=== PATIENT | male | born 1970 | race Asian ===

== ENCOUNTER → 2017-11-08 07:43 | Outpatient (CLI) | payer MEDICARE, MEDICAID, SELFPAY ==
[2017-11-08 09:16] LABS: VALPROIC ACID 76.1 ug/mL (50-100)
== END ==
PROVIDERS: PCP Family Medicine; Visit Provider Family Medicine
DX: G40.109 Localization-related (focal) (partial) symptomatic epilepsy and epileptic syndromes with simple partial seizures, not intractable, without status epilepticus (principal); Z51.81 Encounter for therapeutic drug level monitoring; Z79.899 Other long term (current) drug therapy
CPT/HCPCS: 36415; 80164

== ENCOUNTER 2018-05-28 09:40 | Outpatient (CLI) | payer MEDICARE, MEDICAID, SELFPAY ==
[2018-05-28 10:26] LABS: VALPROIC ACID 72.1 ug/mL (50-100)
== END 2018-05-28 10:00 ==
PROVIDERS: PCP Family Medicine; Visit Provider Family Medicine
DX: G40.109 Localization-related (focal) (partial) symptomatic epilepsy and epileptic syndromes with simple partial seizures, not intractable, without status epilepticus (principal); Z51.81 Encounter for therapeutic drug level monitoring; Z79.899 Other long term (current) drug therapy
CPT/HCPCS: 36415; 80164

== ENCOUNTER 2018-07-17 09:51 | Outpatient (CLI) | payer MEDICARE, MEDICAID, SELFPAY ==
[2018-07-17 11:16] LABS: TROPONIN-I 11.7 ug/mL (4.0-12.0)
== END 2018-07-17 10:11 ==
PROVIDERS: PCP Family Medicine; Visit Provider Family Medicine
DX: G40.109 Localization-related (focal) (partial) symptomatic epilepsy and epileptic syndromes with simple partial seizures, not intractable, without status epilepticus (principal); Z51.81 Encounter for therapeutic drug level monitoring; Z79.899 Other long term (current) drug therapy
CPT/HCPCS: 36415; 80156

== ENCOUNTER 2019-01-15 07:00 | Outpatient (CLI) | payer MEDICARE, MEDICAID, SELFPAY ==
[2019-01-15 13:10] LABS: HCT 42.1 % (40.0-50.0); HGB 14.4 g/dL (13.5-17.5); Mean Corp. HGB Concentration 34.2 g/dL (32.0-36.0); Mean Corpuscular Hemoglobin 32.7 pg (27.0-33.0); Mean Corpuscular Volume 95.5 fL (80-95); Mean Platelet Volume 10.9 fL (8.0-11.0); Platelet Count 221 x1000/uL (130-400); RBC 4.41 m/cumm (4.50-6.00); RBC Distribution Width 12.8 % (11.8-14.1); White Blood Cell Count 6.94 k/cumm (4.4-10.8)
[2019-01-15 13:18] LABS: ALT 29 U/L (16-63); AST 14 U/L (15-37); Alkaline Phosphatase 73 U/L (46-116); Anion Gap 10.9 mmol/L (3-11); BUN 12 mg/dL (7-18); Bilirubin, Total 0.3 mg/dL (0.2-1.0); CO2 24.1 mmol/L (21.0-32.0); CREATININE 0.76 mg/dL (0.70-1.30); Chloride 105 mmol/L (98-107); Glucose 108 mg/dL (70-100); Potassium 4.2 mmol/L (3.5-5.1); Sodium 140 mmol/L (136-145); Total Protein 7.2 g/dL (6.4-8.2)
[2019-01-15 13:37] LABS: VALPROIC ACID 67.5 ug/mL (50-100)
== END 2019-01-15 07:20 ==
PROVIDERS: PCP Family Medicine; Visit Provider Family Medicine
DX: F84.0 Autistic disorder (principal); G40.109 Localization-related (focal) (partial) symptomatic epilepsy and epileptic syndromes with simple partial seizures, not intractable, without status epilepticus; Z51.81 Encounter for therapeutic drug level monitoring
CPT/HCPCS: 36415; 80053; 85027; 80164

== ENCOUNTER 2019-03-19 16:03 | Outpatient (CLI) | payer MEDICARE, MEDICAID, SELFPAY ==
--- NOTE | 2019-03-19 12:25 | DI.RAD_ITS ---
EXAM: XR SHOULDER RT COMPLETE 2+V CLINICAL HISTORY: Right shoulder injury s/p fall, S49.91XA TECHNIQUE: COMPARISON: No exams were available for comparison FINDINGS: Six views were obtained. There is a fracture of the distal aspect of clavicle with mild comminution and moderate displacement. No additional fracture seen. No evidence of a glenohumeral dislocation. IMPRESSION:
== END 2019-03-19 16:23 ==
PROVIDERS: PCP Family Medicine; Visit Provider Family Medicine
DX: M25.511 Pain in right shoulder (principal); S49.91XA Unspecified injury of right shoulder and upper arm, initial encounter; S42.031A Displaced fracture of lateral end of right clavicle, initial encounter for closed fracture
CPT/HCPCS: 73030

== ENCOUNTER 2020-01-13 03:46 | Outpatient (CLI) | payer MEDICARE, MEDICAID, SELFPAY ==
[2020-01-13 11:13] LABS: HCT 41.9 % (40.0-50.0); HGB 14.3 g/dL (13.5-17.5); MCH 32.7 pg (27.0-33.0); MCHC 34.1 % (32.0-36.0); MCV 95.9 fL (80-95); MPV 10.3 fL (8.0-11.0); Platelet Count 165 10^3/uL (130-400); RBC 4.37 10^6/uL (4.36-5.78); RDW 11.9 % (11.8-14.1); RDW-SD 41.9 fL; WBC 6.32 10^3/uL (4.4-10.8)
[2020-01-13 12:15] LABS: VALPROIC ACID 47.6 ug/mL (50-100)
[2020-01-13 12:16] LABS: ALT 16 U/L (16-63); AST 10 U/L (15-37); Albumin 3.8 g/dL (3.4-5.0); Alkaline Phosphatase 57 U/L (46-116); BUN 13 mg/dL (7-18); Bilirubin, Total 0.3 mg/dL (0.2-1.0); CREATININE 0.71 mg/dL (0.70-1.30); Calcium 8.4 mg/dL (8.5-10.1); Calculated LDL 127 mg/dL (<100); Chloride 104 mmol/L (98-107); Cholesterol 221 mg/dL (<200); Glucose 85 mg/dL (74-106); HDL Cholesterol 55 mg/dL (40-60); Potassium 3.8 mmol/L (3.5-5.1); Sodium 135 mmol/L (136-145); TROPONIN-I 11.1 ug/mL (4.0-12.0); Total Protein 6.9 g/dL (6.4-8.2); Triglyceride 199 mg/dL (<150)
== END 2020-01-13 04:06 ==
PROVIDERS: PCP Nurse Practitioner; Visit Provider Nurse Practitioner
DX: G40.109 Localization-related (focal) (partial) symptomatic epilepsy and epileptic syndromes with simple partial seizures, not intractable, without status epilepticus (principal); Z51.81 Encounter for therapeutic drug level monitoring; Z79.899 Other long term (current) drug therapy; Z13.6 Encounter for screening for cardiovascular disorders
CPT/HCPCS: 36415; 80053; 80061; 85027; 80156; 80164

== ENCOUNTER 2020-12-20 03:36 | Outpatient (CLI) | payer MEDICARE, MEDICAID, SELFPAY ==
[2020-12-20 09:28] LABS: VALPROIC ACID 69.2 ug/mL
== END 2020-12-20 03:37 | disposition home or self-care (01) ==
LOC: LBO 03:36
PROVIDERS: PCP Nurse Practitioner; Visit Provider Nurse Practitioner
DX: G40.109 Localization-related (focal) (partial) symptomatic epilepsy and epileptic syndromes with simple partial seizures, not intractable, without status epilepticus (principal)
CPT/HCPCS: 36415; 80164

== ENCOUNTER 2022-01-23 03:31 | Outpatient (CLI) | payer MEDICARE, MEDICAID, SELFPAY ==
[2022-01-23 11:20] LABS: HCT 40.5 % (40.0-50.0); HGB 14.2 g/dL (13.5-17.5); MCH 32.3 pg (27.0-33.0); MCHC 35.1 % (32.0-36.0); MCV 92 fL (80-95); MPV 9.6 fL (8.0-11.0); Platelet Count 206 10^3/uL (130-400); RBC 4.39 10^6/uL (4.36-5.78); RDW 11.9 % (11.8-14.1); RDW-SD 40.5 fL; WBC 8.14 10^3/uL (4.4-10.8)
[2022-01-23 11:56] LABS: ALT 28 U/L (16-63); AST 18 U/L (15-37); Albumin 3.9 g/dL (3.4-5.0); Alkaline Phosphatase 82 U/L (46-116); Anion Gap 9.7 mmol/L (3-11); BUN 10 mg/dL (7-18); Bilirubin, Total 0.3 mg/dL (0.2-1.0); CO2 22.3 mmol/L (21.0-32.0); CREATININE 0.6 mg/dL (0.70-1.30); Calcium 8.8 mg/dL (8.5-10.1); Chloride 101 mmol/L (98-107); Estimated GFR 116.87 (mL/min/1.73m2); Glucose 102 mg/dL (74-106); Potassium 3.6 mmol/L (3.5-5.1); Sodium 133 mmol/L (136-145); Total Protein 7.3 g/dL (6.4-8.2)
[2022-01-23 11:59] LABS: TROPONIN-I 12.7 ug/mL (4.0-12.0)
== END 2022-01-23 03:32 | disposition home or self-care (01) ==
LOC: LBO 03:31
PROVIDERS: Family Medicine; PCP Nurse Practitioner Family; Visit Provider Nurse Practitioner Family
DX: G40.109 Localization-related (focal) (partial) symptomatic epilepsy and epileptic syndromes with simple partial seizures, not intractable, without status epilepticus (principal)
CPT/HCPCS: 36415; 80053; 85027; 80156; 80164; 80201

== ENCOUNTER 2022-02-21 04:00 | Outpatient (CLI) | payer MEDICARE, MEDICAID, SELFPAY ==
[2022-02-21 12:10] LABS: Lab Add On Test DONE
[2022-02-21 12:45] LABS: TROPONIN-I 9.8 ug/mL (4.0-12.0); VALPROIC ACID 64.2 ug/mL
[2022-02-21 18:31] LABS: PSA, Diagnostic 0.5 ng/mL (<=3.5)
[2022-02-24 07:41] LABS: Topiramate 1.9 mcg/mL
== END 2022-02-21 04:01 | disposition home or self-care (01) ==
LOC: LBO 04:00
PROVIDERS: Emergency Medicine; Nurse Practitioner Family; PCP Nurse Practitioner Family; Visit Provider Family Medicine
DX: G40.109 Localization-related (focal) (partial) symptomatic epilepsy and epileptic syndromes with simple partial seizures, not intractable, without status epilepticus (principal); R33.9 Retention of urine, unspecified
CPT/HCPCS: 80156; 80164; 80201; 84153

== ENCOUNTER → 2022-05-22 07:58 | Outpatient (BNVA) | payer MEDICARE, MEDICAID, SELFPAY | PROVIDERS: PCP Nurse Practitioner Family; Referring Provider Nurse Practitioner Family; Visit Provider Urology | DX: R35.0 Frequency of micturition (principal) | CPT/HCPCS: 51798; 99204 ==

== ENCOUNTER 2022-09-04 10:26 | Outpatient (CLI) | payer MEDICARE, MEDICAID, SELFPAY ==
[2022-09-04 12:36] LABS: ALT 62 U/L (16-63); AST 40 U/L (15-37); Albumin 3.8 g/dL (3.4-5.0); Alkaline Phosphatase 87 U/L (46-116); BUN 10 mg/dL (7-18); Bilirubin, Total 0.4 mg/dL (0.2-1.0); CREATININE 0.8 mg/dL (0.70-1.30); Chloride 103 mmol/L (98-107); Estimated GFR 106.48 (mL/min/1.73m2); Glucose 121 mg/dL (74-106); Potassium 3.9 mmol/L (3.5-5.1); Sodium 137 mmol/L (136-145); Total Protein 7.5 g/dL (6.4-8.2)
[2022-09-04 12:41] LABS: TROPONIN-I 11.5 ug/mL (4.0-12.0); VALPROIC ACID 68.2 ug/mL
[2022-09-04 12:53] LABS: Calcium 9.2 mg/dL (8.5-10.1)
[2022-09-05 21:31] LABS: Topiramate 3.1 mcg/mL
== END 2022-09-04 10:27 | disposition home or self-care (01) ==
LOC: LOS 10:26
PROVIDERS: PCP Nurse Practitioner Family; Referring Provider Nurse Practitioner Family; Visit Provider Nurse Practitioner Family
DX: G40.109 Localization-related (focal) (partial) symptomatic epilepsy and epileptic syndromes with simple partial seizures, not intractable, without status epilepticus (principal)
CPT/HCPCS: 36415; 80053; 80156; 80164; 80201

== ENCOUNTER → 2023-05-21 10:01 | Outpatient (BNVA) | payer MEDICARE, MEDICAID, SELFPAY | PROVIDERS: Referring Provider Nurse Practitioner Family; Visit Provider Urology | DX: R35.0 Frequency of micturition (principal); F84.0 Autistic disorder | CPT/HCPCS: 51798; 99213 ==

== ENCOUNTER 2023-08-07 13:41 | Outpatient (REF) | payer MEDICARE, MEDICAID, SELFPAY ==
[2023-08-07 14:54] LABS: HCT 41.1 % (40.0-50.0); HGB 14.5 g/dL (13.5-17.5); MCH 32.4 pg (27.0-33.0); MCHC 35.3 % (32.0-36.0); MCV 92 fL (80-95); MPV 12.1 fL (8.0-11.0); Platelet Count 167 10^3/uL (130-400); RBC 4.47 10^6/uL (4.36-5.78); RDW 12.6 % (11.8-14.1); RDW-SD 42.8 fL; WBC 7.83 10^3/uL (4.4-10.8)
[2023-08-07 15:26] LABS: ALT 34 U/L (16-63); AST 22 U/L (15-37); Albumin 3.9 g/dL (3.4-5.0); Alkaline Phosphatase 71 U/L (46-116); Anion Gap 7.2 mmol/L (3-11); BUN 7 mg/dL (7-18); Bilirubin, Total 0.4 mg/dL (0.2-1.0); CO2 24.8 mmol/L (21.0-32.0); CREATININE 0.8 mg/dL (0.70-1.30); Calcium 9.1 mg/dL (8.5-10.1); Calculated LDL 104 mg/dL (<100); Chloride 105 mmol/L (98-107); Cholesterol 198 mg/dL (<200); Estimated GFR 105.82 (mL/min/1.73m2); Glucose 103 mg/dL (74-106); HDL Cholesterol 69 mg/dL (40-60); Sodium 137 mmol/L (136-145); Total Protein 7.1 g/dL (6.4-8.2); Triglyceride 127 mg/dL (<150)
== END 2023-08-07 13:42 | disposition home or self-care (01) ==
LOC: NCHCN 13:41
PROVIDERS: Visit Provider Internal Medicine
DX: Z13.220 Encounter for screening for lipoid disorders (principal); R03.0 Elevated blood-pressure reading, without diagnosis of hypertension
CPT/HCPCS: 80053; 80061; 85027

== ENCOUNTER 2024-07-29 10:00 | Outpatient (REF) | payer MEDICARE, MEDICAID, SELFPAY ==
[2024-07-29 18:33] LABS: HCT 39.1 % (40.0-50.0); HGB 13.9 g/dL (13.5-17.5); MCHC 35.5 % (32.0-36.0); MCV 90 fL (80-95); MPV 10.9 fL (8.0-11.0); Platelet Count 220 10^3/uL (130-400); RBC 4.35 10^6/uL (4.36-5.78); RDW 11.8 % (11.8-14.1); RDW-SD 38.5 fL; WBC 5.94 10^3/uL (4.4-10.8)
[2024-07-29 18:44] LABS: ALT 27 U/L (16-63); AST 18 U/L (15-37); Albumin 3.9 g/dL (3.4-5.0); Alkaline Phosphatase 85 U/L (46-116); Anion Gap 10.7 mmol/L (3-11); BUN 7 mg/dL (7-18); Bilirubin, Total 0.4 mg/dL (0.2-1.0); CO2 23.3 mmol/L (21.0-32.0); CREATININE 0.8 mg/dL (0.70-1.30); Calcium 8.9 mg/dL (8.5-10.1); Chloride 97 mmol/L (98-107); Estimated GFR 105.17 (mL/min/1.73m2); Glucose 172 mg/dL (74-106); Potassium 4.3 mmol/L (3.5-5.1); Sodium 131 mmol/L (136-145); TROPONIN-I 12.4 ug/mL (4.0-12.0)
[2024-08-02 12:43] LABS: Valproic Acid, Free 4 mcg/mL (5 - 25); Valproic Acid, Total 44 mcg/mL (50 - 125)
== END 2024-07-29 10:01 | disposition home or self-care (01) ==
LOC: NCHCN 10:00
PROVIDERS: Visit Provider Internal Medicine
DX: R03.0 Elevated blood-pressure reading, without diagnosis of hypertension (principal); G40.909 Epilepsy, unspecified, not intractable, without status epilepticus
CPT/HCPCS: 80053; 80165; 85027; 80156

== ENCOUNTER → 2024-09-15 08:39 | Outpatient (BNVA) | payer MEDICARE, MEDICAID, SELFPAY | PROVIDERS: Visit Provider Urology | DX: R35.0 Frequency of micturition (principal); R39.9 Unspecified symptoms and signs involving the genitourinary system | CPT/HCPCS: 99213; 51798 ==

== ENCOUNTER 2024-09-30 19:57 | Outpatient (REF) | payer MEDICARE, MEDICAID, SELFPAY | END 2024-09-30 19:58 | disposition home or self-care (01) | LOC: NCHCN 19:57 | PROVIDERS: Visit Provider Internal Medicine | DX: G40.909 Epilepsy, unspecified, not intractable, without status epilepticus (principal) | CPT/HCPCS: 80156; 80164 ==

== ENCOUNTER 2024-10-12 16:43 | Outpatient (REF) | payer MEDICARE, MEDICAID, SELFPAY ==
[2024-10-12 18:47] LABS: Anion Gap 9.3 mmol/L (3-11); BUN 11 mg/dL (7-18); CO2 24.7 mmol/L (21.0-32.0); Calcium 9.5 mg/dL (8.5-10.1); Chloride 104 mmol/L (98-107); Estimated GFR 109.50 (mL/min/1.73m2); Glucose 201 mg/dL (74-106); Potassium 4.2 mmol/L (3.5-5.1); Sodium 138 mmol/L (136-145)
== END 2024-10-12 16:44 | disposition home or self-care (01) ==
LOC: NCHCN 16:43
PROVIDERS: Visit Provider Internal Medicine
DX: R03.0 Elevated blood-pressure reading, without diagnosis of hypertension (principal)
CPT/HCPCS: 80048